=== PATIENT | male | born 1985 | race Caucasian/White ===

== ENCOUNTER 2018-03-23 04:10 | Emergency (ER) | payer MEDICAID, OTHER ==
[2018-03-23 05:35] LABS: URINE BILIRUBIN NEGATIVE (NEGATIVE); URINE BLOOD NEGATIVE (NEGATIVE); URINE CLARITY Clear (Clear); URINE COLOR Straw (YELLOW); URINE GLUCOSE (UA) NORMAL (Normal); URINE LEUKOCYTE ESTERASE TRACE Leu/uL (Negative); URINE PROTEIN NEGATIVE (NEGATIVE); URINE UROBILINOGEN NORMAL mg/dL (0.2-1.0)
[2018-03-23] MEDS ORDERED: cefTRIAXone (Rocephin) 250 mg Inj IM STA (06:27)
--- NOTE | 2018-03-23 06:27 | C.PDOC ---
History Of Present Illness 32 y/o M p/w penile discharge this morning and L sided flank pain when attempting to urinate tonight. He states the discharge was thick and yellow. Denies fever, chills, chest pain, dyspnea, nausea, vomiting, abd pain, hematuria , diarrhea. Sexually active. Time Seen by Provider: 03/23/18 04:21 Chief Complaint (Nursing): Back Pain Past Medical History Vital Signs: Last Vital Signs Temp 97.9 F 03/23/18 04:17 Pulse 82 03/23/18 04:17 Resp 18 03/23/18 04:17 BP 130/75 03/23/18 04:17 Pulse Ox 99 03/23/18 06:27 Family History: States: Unknown Family Hx - Social History Hx Alcohol Use: Yes Hx Substance Use: Yes (last use friday) - Immunization History Hx Tetanus Toxoid Vaccination: No Hx Influenza Vaccination: No Hx Pneumococcal Vaccination: No Review Of Systems Except As Marked, All Systems Reviewed And Found Negative. Constitutional: Negative for: Fever Respiratory: Negative for: Shortness of Breath Physical Exam - Physical Exam Additional Physical Exam Comments: Gen: NAD Head: NC/AT Eyes: PERRL ENT: MMM Neck: Supple Chest: No tenderness CV: Regular rate Lungs: CTA b/l Abd: Soft, NT : No penile rash or edema. Yellow/crusty discharge at urethra. Back: No CVA tenderness Extremities: No edema Skin: No rash Neuro: Alert, no focal deficit ED Course And Treatment O2 Sat by Pulse Oximetry: 99 Medical Decision Making Medical Decision Making: IMPRESSION: 1. No acute abnormality on this noncontrast CT examination of the abdomen and pelvis . Empirically treated. Discharged home, f/u PMD, return to ED for worsening pain, fever, vomiting, dyspnea, or any other problem. Disposition - Disposition Disposition: HOME/ ROUTINE Disposition Time: 06:30 Condition: STABLE Instructions: Urethritis (DC) Forms: Outside.in (Salvadorean) - Clinical Impression Clinical Impression: Urethritis
[2018-03-23 06:41] VITALS: BP 106/68; PULSE 68; RESP 20; TEMP 98.3; O2SAT 100
--- NOTE | 2018-03-23 08:54 | CT ---
Date of service: 03/23/2018 PROCEDURE: CT Abdomen and Pelvis without intravenous contrast HISTORY: flank pain COMPARISON: None. TECHNIQUE: Multiple contiguous axial images were performed through the abdomen and pelvis without the use of intravenous contrast. Subsequently, sagittal and coronal reformatted images were obtained. Radiation dose: Total exam DLP = 326 mGy-cm. This CT exam was performed using one or more of the following dose reduction techniques: Automated exposure control, adjustment of the mA and/or kV according to patient size, and/or use of iterative reconstruction technique. FINDINGS: LOWER THORAX: Unremarkable. LIVER: Unremarkable. No gross lesion or ductal dilatation. GALLBLADDER AND BILE DUCTS: Contracted gallbladder. PANCREAS: Unremarkable. No gross lesion or ductal dilatation. SPLEEN: Unremarkable. ADRENALS: Unremarkable. No mass. KIDNEYS AND URETERS: Unremarkable. No hydronephrosis. No solid mass. VASCULATURE: Unremarkable. No aortic aneurysm. BOWEL: Nonspecific fluid-filled stomach and small bowel loops. These findings may represent ileus versus gastroenteritis/enteritis versus slow transit versus peristalsis. Clinical correlation. Diverticulosis. APPENDIX: Not well visualized. Correlation with a contrast-enhanced scan may be helpful if clinically indicated. PERITONEUM: Unremarkable. No free fluid. No free air. LYMPH NODES: Unremarkable. No enlarged lymph nodes. BLADDER: Urinary bladder distention. Correlation with patient's voiding status is recommended. REPRODUCTIVE: Unremarkable. BONES: L5/S1 disc herniation seen on image 75 series 602. Clinical correlation. OTHER FINDINGS: None. IMPRESSION: Negative acute. Additional findings as above. These findings were preliminarily reported at 6:24 a.m. on 03/23/[address] Anita Mercer from [facility].
== END 2018-03-23 06:58 | disposition home or self-care (01) ==
LOC: SUPCPDRO 04:10 → C.ER 04:10
DX: N34.2 Other urethritis (principal)
CPT/HCPCS: 74176; 81001; 87086; 87491; 87591; 96372; 99283; J0696